=== PATIENT | female | born 1965 | race Caucasian/White ===

== ENCOUNTER → 2017-08-17 | Outpatient (CLI) | payer OTHER ==
--- NOTE | 2017-08-17 16:10 | XR ---
EXAMINATION TYPE: XR knee complete LT DATE OF EXAM: 08/17/2017 COMPARISON: NONE HISTORY: 52-year-old female with sudden posterior left knee pain while walking down steps, sprain TECHNIQUE: 3 views FINDINGS: There is mild tricompartmental degenerative spurring. Extensor mechanism appears intact. No acute fra cture, subluxation, or dislocation. However, there is a moderate knee joint effusion. IMPRESSION: 1. Mild tricompartmental degenerative spurring. 2. No acute osseous abnormality seen. 3. However, there is a moderate knee joint effusion. If indicated, MRI can be performed to assess for internal derangement.
== END | disposition home or self-care (01) ==
LOC: RADXRMAIN 15:45
PROVIDERS: ATTEND Emergency Medicine
DX: M25.462 Effusion, left knee (principal); M76.892 Other specified enthesopathies of left lower limb, excluding foot

== ENCOUNTER → 2017-08-31 | Outpatient (CLI) | payer OTHER ==
--- NOTE | 2017-08-31 19:47 | MR ---
EXAMINATION TYPE: MR knee LT wo con DATE OF EXAM: 08/31/2017 COMPARISON: Radiograph 08/17/2017 HISTORY: 52-year-old female with pain and Swelling of Left knee after falling down stairs 08/16/2017 TECHNIQUE: Multiplanar, multisequence imaging of the left knee is performed without IV contrast. FINDINGS: ACL, PCL, and LCL complex appear intact. Mild edema in the soft tissues adjacent to the intact MCL. There is a posterior root tear of the medial meniscus with a tear extending into the junction with th e meniscal body. Mild extrusion of the meniscal body. Aajg-cm-dgoigchz irregular cartilage loss along the weightbearing aspect of the medial compartment with marginal spurring. There is suggestion of a very tiny peripheral tear of the posterior horn of the lateral meniscus the attachment site the meniscal femoral ligament, sagittal PD FS image 11. Overall lateral compartment a rticular cartilage volume is maintained. There is minimal superficial cartilage irregularity along the lateral patellar facet with mild margin al spurring. Extensor mechanism is intact. However, there is a moderate to large knee joint effusion with mild chronic synovial thickening. Diff use soft tissue edema suggests joint fluid extravasation. There is also a moderate-sized leaking Tomlinson's cyst measuring 4.2 x 3.2 cm. There is abnormal increas ed signal along the semimembranosus tendon just adjacent and extending to the posterior femoral attac hment site compatible with partial tear and contusion (coronal PD FS image 18 and axial images 7 and 8). Normal popliteal artery anatomy with mild diffuse muscular atrophy. Some patchy red marrow is present and could be seen in the setting of anemia, obesity, smoking, and c hronic disease. IMPRESSION: 1. Grade 1 MCL sprain. 2. Posterior root tear of the medial meniscus with tear extending to the junction with the body. The meniscal body is mildly extruded. Mild overall medial compartmental osteoarthrosis. 3. Suggestion of a tiny peripheral tear of the posterior horn of the lateral meniscus at the meniscof emoral ligament attachment. 4. Contusion and partial tear of the semimembranosus tendon at its posterior femoral attachment site. This allows for a prominent defect through which a moderate-sized leaking Tomlinson's cyst extends. 5. Moderate to large knee joint effusion with mild chronic synovitis. Deep soft tissue edema suggests some joint fluid extravasation.
== END | disposition home or self-care (01) ==
LOC: RADMRIMAIN 19:02
PROVIDERS: ATTEND Emergency Medicine
DX: S83.242A Other tear of medial meniscus, current injury, left knee, initial encounter (principal); S86.112A Strain of other muscle(s) and tendon(s) of posterior muscle group at lower leg level, left leg, initial encounter

== ENCOUNTER → 2017-12-10 | Outpatient (CLI) | payer BC ==
[~2017-12-10] MED LIST: REGADENOSON 0.4 MG/5 ML SYRINGE IV ONE
--- NOTE | 2017-12-10 12:05 | NM ---
EXAMINATION TYPE: NM stress lexiscan cardiolite DATE OF EXAM: 12/10/2017 COMPARISON: NONE HISTORY: Left bundle branch block, abnormal EKG TECHNIQUE: After the intravenous administration of 10.46 mCi Tc 99m Sestamibi - Cardiolite resting S PECT images acquired 45 minutes post injection. The patient received 0.4mg Lexiscan, 25.1 mCi Tc 99m Sestamibi - Stress images obtained [address] injection FINDINGS: Review of stress and rest SPECT images demonstrates decreased radiopharmaceutical uptake along the an teroseptal left ventricle extending towards the apex, some decreased uptake is present along the ante rior wall at stress images as compared to rest images extending into the apex. Gated analysis shows n ormal wall motion with an estimated left ventricular ejection fraction of 45 %. 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 A Yellow level critical message alert has been initiated for Tyson Kline MD via the [employer] Critical Results System on 12/10/2017 12:02 PM. This message alert has been sent to Tyson Kline MD vi a the preferences provided by the clinician for the receipt of Radiology Critical Findings. Message I D [id number].
--- NOTE | 2017-12-10 17:59 | P.STRESS ---
- Stress Test Note Stress Test Results/Findings: Exam Performed: NM stress lexiscan cardiolite Exam Date: 12/10/17 Reason for Exam: LBBB Height: 5 ft 2 in Weight: 79.832 kg Protocol: Lyn Scan Stage: na Duration of Exercise: na Resting Heart Rate: 80 Resting Blood Pressure: 116/72 Maximum Achieved Heart Rate: 80 Maximum Achieved Blood Pressure: 121/70 85% PMHR: na 100% PMHR: na METS: na Technologist Comment: Stress Test Results/Findings: This is a 52-year-old female with family history of ischemic heart disease being evaluated for cardiac status. Patient is found to have abnormal EKG in the form of left bundle-branch block pattern. Stress data Baseline EKG showed left bundle-branch block pattern with sinus rhythm and sinus bradycardia. A standard dose of Lexiscan was infused EKGs did not reveal any changes from the baseline. Final impression: #1. Nondiagnostic Lexiscan stress test because of baseline left bundle branch block #2. Report on the nuclear images to begin by the radiologist.
== END | disposition home or self-care (01) ==
LOC: RADNMMAIN 08:21
PROVIDERS: ATTEND Family Medicine
DX: I44.7 Left bundle-branch block, unspecified (principal); Z88.2 Allergy status to sulfonamides
CPT/HCPCS: 93017; 78452; A9500; J2785

== ENCOUNTER 2017-12-24 08:00 | Day surgery (SDC) | payer BC ==
[2017-12-23 09:39] VITALS: BMI 32.3
[~2017-12-24 08:00] MED LIST changes: +ALPRAZolam 0.25 MG TAB PO PRN; +ALPRAZolam 0.5 MG TAB PO PRN; +ASPIRIN 325 MG TAB PO STA; +ATORVASTATIN 80 MG TAB PO STA; +NITROGLYCERIN SL TABS 0.4 MG TAB SUBLINGUAL PRN; -REGADENOSON 0.4 MG/5 ML SYRINGE IV ONE; +SODIUM CHLORIDE 0.9% 1,000 ML in EMPTY BAG 1 BAG IV ONE
[2017-12-24 08:38] VITALS: RESP 18
[2017-12-24] MEDS ORDERED: LIDOCAINE 1% INJ 10MG/ML (20 ML MDV) ONE (08:46)
[2017-12-24] MEDS ORDERED: LIDOCAINE 1% INJ 10MG/ML (20 ML MDV) SQ ONE (09:00)
[2017-12-24] MEDS ORDERED: MIDAZOLAM 2 MG/2 ML VIAL ONE (09:01)
[2017-12-24] MEDS ORDERED: diphenhydrAMINE 50 MG/ML 1 ML VIAL ONE (09:01)
[2017-12-24] MEDS ORDERED: diphenhydrAMINE 50 MG/ML 1 ML VIAL IVP ONE (09:03)
[2017-12-24] MEDS ORDERED: MIDAZOLAM 2 MG/2 ML VIAL IV ONE (09:03)
[2017-12-24] MEDS ORDERED: NITROGLYCERIN 1000MCG/10ML SYRINGE INTRACORON ONE (09:07)
[2017-12-24] MEDS ORDERED: MORPHINE SULFATE 4 MG/ML SYRINGE ONE (09:16)
[2017-12-24] MEDS ORDERED: MORPHINE SULFATE 4 MG/ML SYRINGE IV ONE (09:18)
[2017-12-24] MEDS ORDERED: IOPAMIDOL-370 100ML BTL INJ ONE (09:18)
[2017-12-24] MEDS ORDERED: RX INFO: IV CONTRAST WAS GIVEN 1 EACH MISC MISCELLANE PRN (09:29)
[2017-12-24] MEDS ORDERED: SODIUM CHLORIDE 0.9% 1,000 ML IV SCH (09:30)
[2017-12-24 10:17] VITALS: TEMP 98.2
--- NOTE | 2017-12-24 10:52 | CC ---
CARDIAC CATHETERIZATION REPORT DATE OF SERVICE: 12/24/2017 PROCEDURE: Left heart catheterization, coronary angiography, left ventriculography. PERFORMED BY: Dr. Ramakrishna Clark. Moderate conscious sedation time was 25 minutes. Patient was administered Benadryl, Versed and morphine and oxygen saturation, hemodynamics and EKG were monitored closely. PROCEDURE NOTE: Under local anesthesia and strict aseptic precautions, a 6-Andorran introducer was placed in the right femoral artery. Using standard Jesica catheters, I performed coronary angiography. There was a vasospasm with cannulation of the RCA. I used intracoronary nitroglycerin. The spasm completely cleared and there was no blockage. LV-gram was performed using a pigtail catheter. The sheath was taken out and a Perclose device used to secure hemostasis. There continued to be bleeding and therefore manual compression and FemoStop was applied. Good hemostasis was secured. Patient tolerated procedure well without complications. CARDIAC CATHETERIZATION FINDINGS: The left ventricular end-diastolic pressure was about 13-14 mmHg without any gradient across the aortic valve. CORONARY ANGIOGRAPHY FINDINGS: RIGHT CORONARY ARTERY: Technically a dominant vessel with significant vasospasm on initial cannulation. Subsequently, nitroglycerin cleared the spasm. No significant disease, minor irregularities gives off a larger PLV, smaller PDA. Has minor irregularities. LEFT MAIN CORONARY ARTERY: Short patent disease-free vessel that bifurcates into LAD and circumflex. LEFT ANTERIOR DESCENDING CORONARY ARTERY: Good caliber vessel extends along the anterior wall gives off small septal branches and a good-sized diagonal branch in the midportion and then the caliber decreases a bit and it runs all the way to the apex supplying a sizable amount of myocardium. There are only minor irregularities in the LAD system with a good caliber diagonal and several septal branches. LEFT POSTERIOR CIRCUMFLEX CORONARY ARTERY: Technically nondominant vessel, gives off a single obtuse marginal that runs laterally and bifurcates into 2 branches distally. No significant disease, has minor irregularities. LEFT VENTRICULOGRAM: This was performed in 30 degree SNELL projection, revealed left ventricle is of normal size with good systolic function, ejection fraction 55%-60% without mitral regurgitation. FINAL IMPRESSION: This patient has a right dominant system, some vasospasm on cannulation of the right coronary artery that resolved with nitroglycerin. Normal filling pressures. Normal ejection fraction of 55%-60%. No significant obstructive coronary artery disease. . RECOMMENDATION: Results were discussed with the patient and family. Continue risk factor modification advised and patient will be discharged later on today if she remains stable and I will see her in the office on 12/30/2017 at 12:30 pm. TAMMY / FARA: [id number] /
--- NOTE | 2017-12-24 11:03 | LTR ---
DATE OF SERVICE: 12/24/2017 RE: Sophie Rooney Dear Dr. Kline; Thank you for the opportunity to participate in the care of Mrs. Sophie Rooney. Please find enclosed my detailed cardiac cath report for your records. This lady had abnormal stress test and I performed cardiac catheter, which revealed no significant obstructive CAD. Sometimes the left bundle we can see the abnormality on the nuclear scan. Her LV function is also well preserved. Continue risk factor modification is advised and there is no contraindication. She can go ahead with the proposed noncardiac surgery that is being planned for her. Thank you for your referral and please call for questions. With kindest regards. Sincerely yours, MD LOUIE MontesL / GUSTAVON: [id number] /
[2017-12-24 18:21] VITALS: BP 121/58; PULSE 62
== END 2017-12-24 17:55 | disposition home or self-care (01) ==
LOC: CATHCVL 08:00
PROVIDERS: ATTEND Internal Medicine Interventional Cardiology
DX: R94.39 Abnormal result of other cardiovascular function study (principal); I44.7 Left bundle-branch block, unspecified; Z82.49 Family history of ischemic heart disease and other diseases of the circulatory system; Z79.899 Other long term (current) drug therapy; Z88.2 Allergy status to sulfonamides
CPT/HCPCS: 93458; 81025; C1894; C1769; C1760; J2250; J2270; J1200; J2001; Q9967

== ENCOUNTER → 2021-10-14 | Outpatient (CLI) | payer OTHER ==
--- NOTE | 2021-10-15 12:49 | MM ---
Reason for exam: screening (asymptomatic). Baseline mammogram. History: Patient is postmenopausal. Physical Findings: A clinical breast exam by your physician is recommended on an annual basis and results should be correlated with mammographic findings. MG Screening Mammo w CAD Bilateral CC and MLO view(s) were taken. There are scattered fibroglandular densities. Finding: There is a high density, circumscribed round mass in the outer quadrant, middle position of the right breast on CC view. ASSESSMENT: Incomplete: need additional imaging evaluation, BI-RAD 0 RECOMMENDATION: Special view mammogram of the right breast. If lesion persists on supplemental views, image directed ultrasound is recommended. [facility] will attempt to contact patient to return for supplemental views and ultrasound if indicated.
== END | disposition home or self-care (01) ==
LOC: RADMAMWWP 07:47
PROVIDERS: ATTEND Family Medicine
DX: Z12.31 Encounter for screening mammogram for malignant neoplasm of breast (principal); Z78.0 Asymptomatic menopausal state
CPT/HCPCS: 77067

== ENCOUNTER → 2021-10-16 | Outpatient (CLI) | payer OTHER ==
--- NOTE | 2021-10-16 09:02 | MM ---
Reason for exam: additional evaluation requested from abnormal screening. Last mammogram was performed less than 1 month ago. History: Patient is postmenopausal. Physical Findings: A clinical breast exam by your physician is recommended on an annual basis and results should be correlated with mammographic findings. MG 3D Work Up W/Cad RT Spot compression CC and LM view(s) were taken of the right breast. Prior study comparison: October 14, 2021, bilateral MG screening mammo w CAD. There are scattered fibroglandular densities. There is no discrete abnormality. Results were given to the patient verbally at the time of the exam. ASSESSMENT: Benign, BI-RAD 2 RECOMMENDATION: Return to routine screening mammogram schedule for both breasts.
== END | disposition home or self-care (01) ==
LOC: RADMAMWWP 08:24
PROVIDERS: ATTEND Family Medicine
DX: R92.8 Other abnormal and inconclusive findings on diagnostic imaging of breast (principal); Z78.0 Asymptomatic menopausal state
CPT/HCPCS: 77065; G0279; 77061

== ENCOUNTER → 2022-12-25 | Outpatient (CLI) | payer OTHER ==
--- NOTE | 2022-12-28 09:51 | MM ---
Reason for Exam: Screening (asymptomatic). Last mammogram was performed 1 year(s) and 2 month(s) ago. Patient History: Menarche at age 10. First Full-Term at age 22. Postmenopausal. Risk Values: Odessa 5 year model risk: 1.3%. Prior Study Comparison: 10/14/2021 Bilateral Screening Mammogram, [facility]. 10/16/2021 Right Diagnostic Mammogram, [facility]. Tissue Density: The breast tissue is heterogeneously dense. This may lower the sensitivity of mammography. Findings: Analyzed By CAD. There is no suspicious group of microcalcifications or new suspicious mass in either breast. Stable nodular density upper outer left breast. Overall Assessment: Benign, BI-RAD 2 Management: Screening Mammogram of both breasts in 1 year. . Patient should continue monthly self-breast exams. A clinical breast exam by your physician is recommended on an annual basis. This exam should not preclude additional follow-up of suspicious palpable abnormalities. Note on Odessa scores and lifetime risk: 1. A Odessa score greater than 3% is considered moderate risk. If this is the case, consider specialist referral to assess eligibility for a risk reducing agent. 2. If overall lifetime risk for the development of breast cancer is 20% or higher, the patient may qualify for future screening with alternating mammogram and breast MRI. Electronically signed and approved by: Shola Crump M.D. Radiologis
== END | disposition home or self-care (01) ==
LOC: RADMAMWWP 07:21
PROVIDERS: ATTEND Family Medicine
DX: Z12.31 Encounter for screening mammogram for malignant neoplasm of breast (principal); Z78.0 Asymptomatic menopausal state
CPT/HCPCS: 77067

== ENCOUNTER → 2024-03-27 | Outpatient (CLI) | payer OTHER ==
--- NOTE | 2024-03-28 14:49 | MM ---
Reason for Exam: Screening (asymptomatic). Last mammogram was performed 1 year(s) and 3 month(s) ago. Patient History: Menarche at age 10. First Full-Term at age 22. Postmenopausal. Patient has history of breast feeding. Risk Values: Odessa 5 year model risk: 1.4%. NCI Lifetime model risk: 7.2%. Prior Study Comparison: 10/14/2021 Bilateral Screening Mammogram, [facility]. 10/16/2021 Right Diagnostic Mammogram, [facility]. 12/25/2022 Bilateral MG screening mammo w CAD, [facility]. Tissue Density: There are scattered areas of fibroglandular density. Findings: Analyzed By CAD. Right breast: There is no suspicious group of microcalcifications or new suspicious mass. Left breast: There is no suspicious group of microcalcifications or new suspicious mass. Overall Assessment: Negative, BI-RAD 1 Management: Screening Mammogram of both breasts in [address] [facility] will attempt to contact patient to return for supplemental views and ultrasound if indicated. Patient should continue monthly self-breast exams. A clinical breast exam by your physician is recommended on an annual basis. This exam should not preclude additional follow-up of suspicious palpable abnormalities. Note on Odessa scores and lifetime risk: 1. A Odessa score greater than 3% is considered moderate risk. If this is the case, consider specialist referral to assess eligibility for a risk reducing agent. 2. If overall lifetime risk for the development of breast cancer is 20% or higher, the patient may qualify for future screening with alternating mammogram and breast MRI. [facility], , 03/28/2024 2:22 PM. Electronically signed and approved by: Tyrell Corral DO
== END | disposition home or self-care (01) ==
LOC: RADMAMWWP 14:26
PROVIDERS: ATTEND Family Medicine
CPT/HCPCS: 77063; 77067